=== PATIENT | male | born 1945 | race Caucasian/White ===

== ENCOUNTER 2021-03-30 07:45 | Observation (INO) ==
[~2021-03-30 07:45] MED LIST: Buffered Lidocaine 1% SYRIN 1 ml INTRADERM ONE; DiMENhydriNATE IV 50 mg/ml 1 ml VIAL IV PUSH ONE; HYDROcodone/ACETAMIN 5/325 mg TAB PO PRN; Lactated Ringers 1000 ml BAG 1,000 ML IV SCH; Metoclopramide 5 MG/ML VIAL (10 mg) IV PRN; Naloxone 0.4 mg VIAL 0.4 mg/ml 1 ml VIAL IV PRN; Ondansetron 4 mg VIAL 2 MG/ML 2 ml VIAL IV PRN; fentaNYL 100 mcg/2 ml 50 MCG/ML VIAL IV PRN
[2021-03-30] MEDS ORDERED: Propofol 0 MG/0 ML BTL ONE (09:45)
[2021-03-30] MEDS ORDERED: DiMENhydriNATE IV 50 mg/ml 1 ml VIAL ONE (09:51)
[2021-03-30] MEDS ORDERED: ceFAZolin 2 GM in NS PREMIX 2 GM/100 ML BAG IVPB ONE (09:52)
[2021-03-30] MEDS ORDERED: Bupivacaine 0.5% SDV PF 30ML VIAL ONE (10:21)
[2021-03-30] MEDS ORDERED: Midazolam 2 mg/2 ml VIAL 1 mg/ml 2 ml VIAL (2 mg) ONE (10:50)
[2021-03-30 10:55] LABS: Rapid COVID-19 Molecular Undetected (Undetected)
[2021-03-30] MEDS ORDERED: Lidocaine 2% PF 5 ML VIAL ONE (11:04)
[2021-03-30] MEDS ORDERED: Propofol 10 MG/ML 20 ML BTL ONE (11:04)
[2021-03-30] MEDS ORDERED: fentaNYL 250 mcg/5 ml 50 MCG/ML 5 ml VIAL (250 MCG) ONE (11:05)
[2021-03-30] MEDS ORDERED: Rocuronium 50 mg VIAL 10 mg/ml 5 ml VIAL (50 mg) ONE ×2 (11:05→11:44)
[2021-03-30] MEDS ORDERED: ROPIVACAINE 5 MG/ML 30 ML BTL (0.5%) ONE (11:11)
[2021-03-30] MEDS ORDERED: EPHEDrine (Pressors) 50 MG/ML VIAL ONE (11:40)
[2021-03-30] MEDS ORDERED: Dexamethasone IV 4 MG/ML VIAL 1 ml VIAL ONE (11:40)
[2021-03-30] MEDS ORDERED: HYDROmorphone 1 MG/1 ML SYRINGE ONE (12:06)
[2021-03-30] MEDS ORDERED: Ondansetron ODT 4 mg TAB 4 MG TAB PO PRN (12:15)
[2021-03-30] MEDS ORDERED: diPHENhydraMINE 25 mg TAB PO PRN (12:15)
[2021-03-30] MEDS ORDERED: Magnesium Hydroxide LIQ 30 ML UDC PO PRN (12:15)
[2021-03-30] MEDS ORDERED: Lactulose 30 ml UDC PO PRN (12:15)
[2021-03-30] MEDS ORDERED: Ondansetron 4 mg VIAL 2 MG/ML 2 ml VIAL IV PRN (12:15)
[2021-03-30] MEDS ORDERED: Morphine 2 MG/ML SYRINGE IV PRN (12:15)
[2021-03-30] MEDS ORDERED: diPHENhydraMINE IV 50 MG/ML 1 ml VIAL (BENADRYL) IV PRN (12:15)
[2021-03-30] MEDS ORDERED: Ketamine HCL 50 mg/ml 10 ml VIAL (500 MG) ONE (12:17)
[2021-03-30] MEDS ORDERED: Ondansetron 4 mg VIAL 2 MG/ML 2 ml VIAL ONE (13:30)
[2021-03-30] MEDS: Lactated Ringers 1000 ml BAG 1,000 ML IV SCH (16:37)
[2021-03-30] MEDS: Magnesium Hydroxide LIQ 30 ML UDC PO SCH (19:34)
[2021-03-30] MEDS: ceFAZolin 1 GM ADVAN 1 GM in NS 0.9% 50 ML 50 ML IVPB SCH (19:35)
[2021-03-31] MEDS: Lactated Ringers 1000 ml BAG 1,000 ML IV SCH (02:58)
[2021-03-31] MEDS: ceFAZolin 1 GM ADVAN 1 GM in NS 0.9% 50 ML 50 ML IVPB SCH ×2 (03:36→12:01)
[2021-03-31 07:00] LABS: Hematocrit 33 % (42-52); Hemoglobin 11.3 g/dL (14.0-18.0); Mean Platelet Volume 7.9 fL (7.4-10.4); Platelet Count 274 10^3/uL (150-450)
[2021-03-31 07:16] LABS: Calcium 8.2 mg/dL (8.6-10.3); EGFR African American 61.1 (>60); EGFR Non-African American 50.5 (>60); Potassium 4.2 mmol/L (3.5-5.0)
[2021-03-31] MEDS: Magnesium Hydroxide LIQ 30 ML UDC PO SCH (08:36)
[2021-03-31] MEDS ORDERED: Vitamin THERAPEUTIC TAB PO SCH (09:00)
[2021-03-31 11:51] VITALS: BP 123/65
== END 2021-03-31 13:30 | disposition home or self-care (01) | DRG 470 ==
LOC: AA 08:47 → INTOOBSV 08:47 → SSU 16:20
PROVIDERS: ADMIT Orthopaedic Surgery Adult Reconstructive Orthopaedic Surgery; ATTEND Orthopaedic Surgery Adult Reconstructive Orthopaedic Surgery